=== PATIENT | male | born 1940 | race Caucasian/White ===

== ENCOUNTER 2017-03-12 11:01 | Inpatient (IN) | payer OTHER ==
[~2017-03-12] VITALS: Ht 182.9 cm; Wt 96.2 kg
[2017-03-12] MEDS ORDERED: SODIUM CHLORIDE 0.9% 1,000 ML IVB ONE (11:50)
[2017-03-12 12:39] LABS: Basophils # (auto) 0 uL; Basophils % (auto) 0.2 % (0.0-2.0); CONDITION Y; Eosinophils # (auto) 0.2 uL; Eosinophils % (auto) 1.8 % (0.0-7.0); Hematocrit 39.7 % (41.0-53.0); Hemoglobin 13.6 g/dL (13.5-17.5); Lymphocytes # (auto) 1.3 uL; Lymphocytes % (auto) 13.6 % (10.0-50.0); Mean Corpuscular Hemoglobin 31.9 pg (28.0-32.0); Mean Corpuscular Hgb Conc. 34.2 g/dL (32.0-36.0); Mean Corpuscular Volume 93.3 fL (80.0-100.0); Mean Platelet Volume 8.8 fL (7.4-10.4); Monocytes # (auto) 0.6 uL; Monocytes % (auto) 5.9 % (0.0-12.0); Neutrophils # (auto) 7.6 uL; Neutrophils % (auto) 78.5 % (37.0-80.0); Platelet Count (auto) 224 10^3/uL (140-450); Red Cell Distribution Width 14.1 % (11.6-16.0); White Blood Cell 9.7 10^3/uL (4.4-10.8)
[2017-03-12 13:10] LABS: INR 0.99 (0.9-1.15); Partial Thromboplastin Time 25.9 sec (22.64-33.71); Prothrombin Time 10.8 sec (9.37-12.3)
[2017-03-12 13:24] LABS: B-Type Natriuretic Peptide 75.74 pg/mL (0-100)
[2017-03-12 13:37] LABS: Albumin 3.5 g/dL (3.4-5.0); Anion Gap 9 (5-15); Aspartate Aminotransferase 36 U/L (15-37); Blood Urea Nitrogen 21 mg/dL (7-18); Calcium 7.8 mg/dL (8.5-10.1); Carbon Dioxide 30 mmol/L (21-32); Chloride 105 mmol/L (98-107); GFR African American 54 mL/min; GFR Non-African American 44 mL/min; Glucose 278 mg/dL (74-106); Magnesium 1.7 mg/dL (1.6-2.6); Potassium 4.1 mmol/L (3.5-5.1); Sodium 144 mmol/L (136-145)
[2017-03-12 13:42] LABS: Alkaline Phosphatase 72 U/L (45-117); Bilirubin, Total 1.1 mg/dL (0.2-1.0)
[2017-03-12 13:55] LABS: Lactic Acid w/Reflex 2.3 mmol/L (0.4-2.0)
[2017-03-12 14:31] LABS: REFLEX LACTIC ACID YES OR NO YES
[2017-03-12] MEDS ORDERED: ENOXAPARIN SOD 80 MG/0.8ML SYRINGE SC ONE (15:00)
[2017-03-12] MEDS ORDERED: SODIUM CHLORIDE 0.9% 1,000 ML IV ONE (15:00)
[2017-03-12] MEDS ORDERED: InsuLIN REG 1unit/0.01ml Soln (100units/ml) IV ONE (15:00)
[2017-03-12] MEDS ORDERED: ACETAMINOPHEN 500 MG TAB PO PRN (16:00)
[2017-03-12] MEDS ORDERED: FUROSEMIDE 20 MG/2 ML VIAL IV ONE (16:00)
[2017-03-12] MEDS ORDERED: HYDROcodone-ACET 5/325MG TAB PO PRN (16:00)
[2017-03-12] MEDS ORDERED: MORPHINE SULF INJ 2 MG/ML SYRINGE 1ML IV PRN ×2 (16:00)
[2017-03-12] MEDS ORDERED: LORazepam 0.5 MG TAB PO PRN (16:00)
[2017-03-12] MEDS ORDERED: DEXTROSE (50%) 50ML SYRG IV PRN (16:00)
[2017-03-12] MEDS ORDERED: TEMAZEPAM 15 MG CAP PO PRN (16:00)
[2017-03-12] MEDS ORDERED: ONDANSETRON HCL 4 MG/2 ML VIAL IV PRN (16:00)
[2017-03-12] MEDS ORDERED: NITROGLYCERIN 0.4 MG SL TAB SL PRN (16:00)
[2017-03-12] MEDS ORDERED: predniSONE 1 MG TAB PO ONE (16:30)
[2017-03-12] MEDS ORDERED: METOPROLOL TARTRATE 25 MG TAB PO ONE (16:30)
[2017-03-12] MEDS: ACCU-CHEK COMFORT CURVE STRIP VI SCH ×2 (16:45→22:23)
[2017-03-12] MEDS: InsuLIN REG 1unit/0.01ml Soln (100units/ml) SC SCH ×2 (16:46→22:24)
[2017-03-12] MEDS: SODIUM CHLORIDE 0.9% 1,000 ML IV SCH (18:27)
[2017-03-12 18:32] LABS: Urine Bilirubin Negative (Negative); Urine Blood Negative /uL (Negative); Urine Color Yellow (Yellow); Urine Glucose 4+ mg/dL (Normal); Urine Ketone Negative (Negative); Urine Mucus FEW (None Seen); Urine Nitrite Negative (Negative); Urine RBC <1 /hpf (0 - 3); Urine Squamous Epithelial Cell FEW /hpf (<5); Urine Urobilinogen Normal (Negative); Urine pH 5.5 (5.0-8.0)
[2017-03-12 22:00] VITALS: BP 112/67
[2017-03-12] MEDS ORDERED: ATORVASTATIN 20 MG TAB PO SCH (22:00)
[2017-03-12] MEDS: ENOXAPARIN SOD 80 MG/0.8ML SYRINGE SC SCH (22:23)
[2017-03-12] MEDS: METOPROLOL TARTRATE 25 MG TAB PO SCH (22:24)
[2017-03-13] VITALS (7 sets, daily range): BP systolic 105–130; BP diastolic 53–83
[2017-03-13 05:29] LABS: Basophils # (auto) 0 uL; Basophils % (auto) 0.4 % (0.0-2.0); CONDITION Y; Eosinophils # (auto) 0.2 uL; Eosinophils % (auto) 3.2 % (0.0-7.0); Hematocrit 32.5 % (41.0-53.0); Lymphocytes # (auto) 1.7 uL; Mean Corpuscular Hemoglobin 31.9 pg (28.0-32.0); Mean Corpuscular Hgb Conc. 33.8 g/dL (32.0-36.0); Mean Corpuscular Volume 94.4 fL (80.0-100.0); Mean Platelet Volume 8.5 fL (7.4-10.4); Monocytes # (auto) 0.5 uL; Monocytes % (auto) 6.4 % (0.0-12.0); Neutrophils # (auto) 4.8 uL; Platelet Count (auto) 168 10^3/uL (140-450); Red Cell Distribution Width 13.8 % (11.6-16.0); White Blood Cell 7.3 10^3/uL (4.4-10.8)
[2017-03-13 05:47] LABS: BUN/Creatinine Ratio 16.7; Calcium 7.1 mg/dL (8.5-10.1); Potassium 3.3 mmol/L (3.5-5.1)
[2017-03-13] MEDS: ACCU-CHEK COMFORT CURVE STRIP VI SCH ×4 (05:52→22:28)
[2017-03-13] MEDS: InsuLIN REG 1unit/0.01ml Soln (100units/ml) SC SCH ×4 (05:53→22:59)
[2017-03-13] MEDS ORDERED: METF-370 PO (06:32)
[2017-03-13] MEDS ORDERED: MET25T PO (06:32)
[2017-03-13] MEDS ORDERED: POTA10TA51 PO (06:32)
[2017-03-13] MEDS ORDERED: FURO20TA3 PO (06:32)
[2017-03-13] MEDS ORDERED: GLIP-115 PO (06:32)
[2017-03-13] MEDS: SODIUM CHLORIDE 0.9% 1,000 ML IV SCH ×2 (06:34→22:26)
[2017-03-13] MEDS ORDERED: predniSONE 1 MG TAB PO SCH (10:00)
[2017-03-13] MEDS: METOPROLOL TARTRATE 25 MG TAB PO SCH ×2 (10:59→22:28)
[2017-03-13] MEDS: predniSONE 1 MG TAB PO SCH ×2 (10:59→22:26)
[2017-03-13] MEDS: ENOXAPARIN SOD 80 MG/0.8ML SYRINGE SC SCH ×2 (11:00→22:39)
[2017-03-13] MEDS ORDERED: POTASSIUM CHL 20 Meq TABLET PO ONE (12:15)
[2017-03-13] MEDS ORDERED: APIXABAN 5 MG TAB PO SCH (13:00)
[2017-03-13] MEDS: glipiZIDE 5 MG TAB PO SCH ×2 (13:41→18:20)
[2017-03-13] MEDS ORDERED: APIXABAN 5 MG TAB PO ONE (14:00)
[2017-03-13] MEDS: APIXABAN 5 MG TAB PO SCH (22:27)
[2017-03-14 05:30] VITALS: BP 137/76
[2017-03-14 06:07] LABS: BUN/Creatinine Ratio 15.5; Calcium 7.7 mg/dL (8.5-10.1)
[2017-03-14] MEDS: ACCU-CHEK COMFORT CURVE STRIP VI SCH ×4 (06:12→22:25)
[2017-03-14] MEDS: glipiZIDE 5 MG TAB PO SCH ×2 (06:17→17:43)
[2017-03-14] MEDS: InsuLIN REG 1unit/0.01ml Soln (100units/ml) SC SCH ×4 (06:17→22:33)
[2017-03-14 06:39] LABS: Potassium 4.4 mmol/L (3.5-5.1)
[2017-03-14 09:00] VITALS: BP 141/80
[2017-03-14] MEDS: predniSONE 1 MG TAB PO SCH ×2 (09:11→22:24)
[2017-03-14] MEDS: APIXABAN 5 MG TAB PO SCH ×2 (09:12→22:24)
[2017-03-14] MEDS: METOPROLOL TARTRATE 25 MG TAB PO SCH ×2 (09:12→22:25)
[2017-03-14] MEDS: ENOXAPARIN SOD 80 MG/0.8ML SYRINGE SC SCH (09:12)
[2017-03-14] MEDS: SODIUM CHLORIDE 0.9% 1,000 ML IV SCH (09:13)
[2017-03-14 09:46] LABS: BUN/Creatinine Ratio 12.3; Calcium 7.4 mg/dL (8.5-10.1); Potassium 3.5 mmol/L (3.5-5.1)
[2017-03-14 12:45] VITALS: BP_SYST 110; BP_SYST 146; BP_DIAS 49; BP_DIAS 75
[2017-03-14 17:00] VITALS: BP_SYST 105; BP_SYST 126; BP_DIAS 55; BP_DIAS 69
[2017-03-14 21:35] VITALS: BP 136/62
[2017-03-15 05:01] VITALS: BP 124/63
[2017-03-15] MEDS: InsuLIN REG 1unit/0.01ml Soln (100units/ml) SC SCH ×2 (06:26→11:30)
[2017-03-15] MEDS: glipiZIDE 5 MG TAB PO SCH (06:26)
[2017-03-15] MEDS: ACCU-CHEK COMFORT CURVE STRIP VI SCH ×2 (06:26→11:30)
[2017-03-15 08:41] VITALS: BP 127/68
[2017-03-15] MEDS: APIXABAN 5 MG TAB PO SCH (10:44)
[2017-03-15] MEDS: METOPROLOL TARTRATE 25 MG TAB PO SCH (10:44)
[2017-03-15] MEDS: predniSONE 1 MG TAB PO SCH (10:45)
[2017-03-15 12:51] VITALS: BP 127/68
[2017-03-15 13:00] VITALS: BP 146/91
== END 2017-03-15 14:15 | disposition home or self-care (01) | DRG 682 ==
LOC: EDBD 11:01 → ER 11:01 → TELE 11:02 → TELE-WESTW 21:52
PROVIDERS: ADMIT Nurse Practitioner Family; ATTEND Internal Medicine
DX: N17.0 Acute kidney failure with tubular necrosis (principal); G93.41 Metabolic encephalopathy; I82.411 Acute embolism and thrombosis of right femoral vein; I13.0 Hypertensive heart and chronic kidney disease with heart failure and stage 1 through stage 4 chronic kidney disease, or unspecified chronic kidney disease; I50.32 Chronic diastolic (congestive) heart failure; M62.82 Rhabdomyolysis; E86.0 Dehydration; E78.5 Hyperlipidemia, unspecified; E11.22 Type 2 diabetes mellitus with diabetic chronic kidney disease; N18.3 Chronic kidney disease, stage 3 (moderate); E11.65 Type 2 diabetes mellitus with hyperglycemia; R79.1 Abnormal coagulation profile; Z79.01 Long term (current) use of anticoagulants
CPT/HCPCS: 36415; 70450; 71010; 78582; 80048; 80053; 80307; 80320; 81001; 82550; 82962; 83036; 83605; 83735; 83880; 84443; 84484; 85025; 85379; 85610; 85730; 87040; 87086; 93005; 93306; 93970; 96360; 96361; 96372; 97163; 99291; J1815

== ENCOUNTER 2017-04-11 08:31 | Emergency (ER) | payer OTHER ==
[~2017-04-11] VITALS: Ht 193 cm; Wt 81.6 kg
[~2017-04-11 08:31] MED LIST: FURO20TA3 PO; GLIP-115 PO; MET25T PO; METF-370 PO; POTA10TA51 PO
[2017-04-11] MEDS ORDERED: SODIUM CHLORIDE 0.9% 1,000 ML IV ONE (09:02)
[2017-04-11 09:45] LABS: Basophils # (auto) 0.1 uL; Eosinophils # (auto) 0.2 uL; Hematocrit 37.9 % (41.0-53.0); Hemoglobin 12.8 g/dL (13.5-17.5); Lymphocytes % (auto) 24.6 % (10.0-50.0); Mean Corpuscular Hemoglobin 31.6 pg (28.0-32.0); Mean Corpuscular Hgb Conc. 33.8 g/dL (32.0-36.0); Mean Corpuscular Volume 93.7 fL (80.0-100.0); Mean Platelet Volume 8.4 fL (6.9-10.8); Monocytes # (auto) 0.8 uL; Monocytes % (auto) 9.6 % (0.0-12.0); Neutrophils # (auto) 5.1 uL; Neutrophils % (auto) 62.8 % (37.0-80.0); Platelet Count (auto) 188 10^3/uL (140-450); Red Cell Distribution Width 13.9 % (11.8-14.3); White Blood Cell 8.1 10^3/uL (4.4-10.8)
[2017-04-11 10:01] LABS: INR 1.03 (0.9-1.15); Partial Thromboplastin Time 29.3 sec (22.64-33.71); Prothrombin Time 11.2 sec (9.37-12.3)
[2017-04-11 10:09] LABS: Albumin 3.8 g/dL (3.4-5.0); Alkaline Phosphatase 72 U/L (45-117); Anion Gap 8 (5-15); Aspartate Aminotransferase 12 U/L (15-37); BUN/Creatinine Ratio 12.1; Bilirubin, Total 0.5 mg/dL (0.2-1.0); Blood Urea Nitrogen 18 mg/dL (7-18); Calcium 7.4 mg/dL (8.5-10.1); Carbon Dioxide 27 mmol/L (21-32); Chloride 102 mmol/L (98-107); GFR African American 59 mL/min; GFR Non-African American 49 mL/min; Glucose 139 mg/dL (74-106); Magnesium 1.4 mg/dL (1.6-2.6); Potassium 3.8 mmol/L (3.5-5.1); Sodium 137 mmol/L (136-145); Total Protein 7.2 g/dL (6.4-8.2)
[2017-04-11 10:12] LABS: Urine RBC None Seen /hpf (0 - 3)
[2017-04-11 10:28] LABS: Urine Bilirubin Negative (Negative); Urine Blood Negative /uL (Negative); Urine Color Yellow (Yellow); Urine Glucose Normal (Normal); Urine Ketone Negative (Negative); Urine Nitrite Negative (Negative); Urine Squamous Epithelial Cell FEW /hpf (<5); Urine Urobilinogen Normal (Negative); Urine pH 5.5 (5.0-8.0)
[2017-04-11] MEDS: MAGNESIUM SULFATE 1GM/100ML 100 ML IV SCH ×2 (12:40→13:23)
[2017-04-11 14:56] VITALS: BP 116/68
== END 2017-04-11 15:47 | disposition short-term general hospital (02) ==
LOC: EDBD 08:31 → ER 08:31
DX: G45.9 Transient cerebral ischemic attack, unspecified (principal); E11.21 Type 2 diabetes mellitus with diabetic nephropathy; E83.42 Hypomagnesemia; I50.9 Heart failure, unspecified; I11.0 Hypertensive heart disease with heart failure; E78.5 Hyperlipidemia, unspecified
CPT/HCPCS: 36415; 70450; 71020; 80053; 81001; 83735; 84443; 84484; 85025; 85610; 85730; 93005; 94761; 96361; 96365; 96366; 99285; J3475; J7030

== ENCOUNTER 2018-06-15 18:08 | Observation (INO) | payer OTHER ==
[~2018-06-15] VITALS: Ht 177.8 cm; Wt 90.7 kg
[2018-06-15] MEDS ORDERED: VANCOMYCIN 1GM/250ML 250 ML IV ONE (20:15)
[2018-06-15] MEDS ORDERED: SODIUM CHLORIDE 0.9% 1,000 ML IV ONE (20:15)
[2018-06-15] MEDS ORDERED: cefTRIAXone 1GM/50ML D5W 50 ML IV ONE (20:15)
[2018-06-15 20:16] LABS: Basophils # (auto) 0.1 uL; Basophils % (auto) 0.6 % (0.0-2.0); Eosinophils # (auto) 0.2 uL; Lymphocytes # (auto) 1.6 uL; Lymphocytes % (auto) 17.3 % (10.0-50.0); Mean Corpuscular Hemoglobin 31.8 pg (28.0-32.0); Mean Corpuscular Volume 93.2 fL (80.0-100.0); Monocytes # (auto) 0.9 uL; Monocytes % (auto) 10.1 % (0.0-12.0); Neutrophils # (auto) 6.4 uL; White Blood Cell 9.1 10^3/uL (4.4-10.8)
[2018-06-15 20:17] LABS: Mean Corpuscular Hgb Conc. 34.1 g/dL (32.0-36.0); Platelet Count (auto) 224 10^3/uL (140-450); Red Cell Distribution Width 14.3 % (11.8-14.3)
[2018-06-15 20:34] LABS: Alanine Aminotransferase 20 U/L (16-61); Albumin 3.8 g/dL (3.4-5.0); Anion Gap 5 (5-15); Aspartate Aminotransferase 10 U/L (15-37); Blood Urea Nitrogen 24 mg/dL (7-18); Calcium 8.1 mg/dL (8.5-10.1); Carbon Dioxide 28 mmol/L (21-32); Chloride 107 mmol/L (98-107); Glucose 130 mg/dL (74-106); Potassium 3.7 mmol/L (3.5-5.1); Sodium 140 mmol/L (136-145)
[2018-06-15 20:36] LABS: Lactic Acid w/Reflex 2.2 mmol/L (0.4-2.0)
[2018-06-15 20:38] LABS: Alkaline Phosphatase 91 U/L (45-117); BUN/Creatinine Ratio 17.4; Bilirubin, Total 0.5 mg/dL (0.2-1.0); GFR African American 64 mL/min; GFR Non-African American 53 mL/min; Total Protein 7.3 g/dL (6.4-8.2)
[2018-06-15] MEDS ORDERED: cloNIDine HCL 0.1 MG TAB PO ONE (23:30)
[2018-06-16] MEDS ORDERED: SODIUM CHLORIDE 0.9% 1,000 ML IVB ONE (08:51)
[2018-06-16 09:33] LABS: Alcohol, Urine < 3.0 mg/dL (0-5); Amphetamine Screen, Urine NEGATIVE (NEGATIVE); Barbiturate Scree,Urine NEGATIVE (NEGATIVE); Benzodiazephine Screen, Urine NEGATIVE (NEGATIVE); Cannabinoid Screen, Urine NEGATIVE (NEGATIVE); Cocaine Screen, Urine NEGATIVE (NEGATIVE); Opiate Scree,Urine NEGATIVE (NEGATIVE); Phencyclidine Screen, Urine NEGATIVE (NEGATIVE)
[2018-06-16 09:42] LABS: Urine Bacteria NONE SEEN /hpf (None Seen); Urine Blood Negative /uL (Negative); Urine Specific Gravity 1.021 (1.001-1.035); Urine WBC <1 /hpf (0 - 3)
[2018-06-16 14:28] VITALS: BP 123/64
[2018-06-16 14:29] LABS: INR 0.93 (0.9-1.15); Partial Thromboplastin Time 27.5 sec (23.78-33.04)
== END 2018-06-16 14:39 | disposition short-term general hospital (02) | DRG 872 ==
LOC: EDBD 18:08 → ER 18:20 → OVERFLOW 21:39 → ER 06-16 14:39
PROVIDERS: ADMIT Emergency Medicine; ATTEND Emergency Medicine
DX: A40.9 Streptococcal sepsis, unspecified (principal); L03.115 Cellulitis of right lower limb; I11.0 Hypertensive heart disease with heart failure; I50.9 Heart failure, unspecified; E11.51 Type 2 diabetes mellitus with diabetic peripheral angiopathy without gangrene; E11.621 Type 2 diabetes mellitus with foot ulcer; N28.9 Disorder of kidney and ureter, unspecified; E78.5 Hyperlipidemia, unspecified
CPT/HCPCS: 36415; 70450; 71045; 73610; 80053; 80307; 81001; 82962; 83605; 83735; 84443; 84484; 85025; 85610; 85730; 87040; 87077; 87186; 87205; 93005; 96365; 96368; 99291; G0378; J0696; J3370; J7030

== ENCOUNTER 2018-12-08 00:16 | Inpatient (IN) | payer OTHER ==
[~2018-12-08] VITALS: Ht 182.9 cm; Wt 94.1 kg
[~2018-12-08 00:16] MED LIST changes: -GLIP-115 PO; +GLIP5TAB12 PO
[2018-12-08] MEDS ORDERED: MEPERIDINE HCL (50 MG/ML) 1 ML VIAL IV ONE (01:30)
[2018-12-08] MEDS ORDERED: DILTIAZEM HCL 25 MG/5 ML VIAL IV ONE (01:30)
[2018-12-08] MEDS ORDERED: LEVOFLOXACIN 750MG 150 ML IV ONE (02:00)
[2018-12-08] MEDS ORDERED: ACETAMINOPHEN 650 MG RECT SUPP PR ONE (02:00)
[2018-12-08 02:09] LABS: Basophils # (auto) 0.1 uL; Basophils % (auto) 0.5 % (0.0-2.0); Eosinophils # (auto) 0.1 uL; Eosinophils % (auto) 0.8 % (0.0-7.0); Hematocrit 42.6 % (41.0-53.0); Lymphocytes # (auto) 0.9 uL; Lymphocytes % (auto) 7.7 % (10.0-50.0); Mean Corpuscular Hemoglobin 30.6 pg (28.0-32.0); Mean Corpuscular Hgb Conc. 32.8 g/dL (32.0-36.0); Mean Corpuscular Volume 93.2 fL (80.0-100.0); Monocytes # (auto) 1.1 uL; Monocytes % (auto) 9.1 % (0.0-12.0); Neutrophils % (auto) 81.9 % (37.0-80.0); Nucleated Red Blood Cells % 0.1 %; Platelet Count (auto) 196 10^3/uL (140-450); Red Blood Cells 4.57 10^6/uL (4.5-5.90); Red Cell Distribution Width 14.3 % (11.8-14.3); White Blood Cell 12.3 10^3/uL (4.4-10.8)
[2018-12-08 02:31] LABS: Lactic Acid w/Reflex 3.6 mmol/L (0.4-2.0)
[2018-12-08 02:35] LABS: Acetaminophen < 2.0 ug/mL (10-30); Salicylate < 1.7 mg/dL (2.8-20.0)
[2018-12-08 02:46] LABS: Urine Bacteria NONE SEEN /hpf (None Seen); Urine Blood 1+ /uL (Negative); Urine WBC 1 /hpf (0 - 3)
[2018-12-08 03:02] LABS: Albumin 3.4 g/dL (3.4-5.0); Alkaline Phosphatase 80 U/L (45-117); Anion Gap 13 (5-15); Aspartate Aminotransferase 17 U/L (15-37); BUN/Creatinine Ratio 8.4; Bilirubin, Total 0.4 mg/dL (0.2-1.0); Blood Urea Nitrogen 13 mg/dL (7-18); Carbon Dioxide 18 mmol/L (21-32); Chloride 112 mmol/L (98-107); GFR African American 56 mL/min; GFR Non-African American 47 mL/min; Glucose 227 mg/dL (74-106); Potassium 4.3 mmol/L (3.5-5.1); Sodium 143 mmol/L (136-145)
[2018-12-08 03:03] LABS: Alanine Aminotransferase 24 U/L (16-61); Blood Alcohol < 3.0 mg/dL (0-5); Total Protein 6.9 g/dL (6.4-8.2)
[2018-12-08 03:07] LABS: Alcohol, Urine < 3.0 mg/dL (0-5); Amphetamine Screen, Urine NEGATIVE (NEGATIVE); Barbiturate Scree,Urine NEGATIVE (NEGATIVE); Benzodiazephine Screen, Urine NEGATIVE (NEGATIVE); Cannabinoid Screen, Urine NEGATIVE (NEGATIVE); Cocaine Screen, Urine NEGATIVE (NEGATIVE); Opiate Scree,Urine NEGATIVE (NEGATIVE); Phencyclidine Screen, Urine NEGATIVE (NEGATIVE)
[2018-12-08] MEDS ORDERED: DIGOXIN (250MCG/ML) 2 ML AMPULE IV ONE (03:30)
[2018-12-08] MEDS ORDERED: DILTIAZEM 125mg/125ml BAG KIT 125 ML IV ONE (04:00)
[2018-12-08] MEDS ORDERED: AMIODARONE HCL 150 MG in D5W 5% 100 ML IV ONE ×2 (04:15→04:30)
[2018-12-08] MEDS ORDERED: KETOROLAC TROMETH 30 MG/ML 1ML VIAL IV ONE (04:15)
[2018-12-08] MEDS ORDERED: VANCOMYCIN PER PHARMACY 0 MG IV SCH (04:15)
[2018-12-08] MEDS ORDERED: AMIODARONE HCL 900 MG in DEXTROSE 500 ML IV SCH ×3 (04:24→10:24)
[2018-12-08] MEDS ORDERED: LABETALOL HCL 5 MG/ML ML 20ML VIAL IV ONE ×2 (04:30→05:00)
[2018-12-08] MEDS ORDERED: AMIODARONE HCL 900 MG IV ONE (04:35)
[2018-12-08] MEDS ORDERED: AMIODARONE HCL (50 MG/ ML) 3 ML VIAL IV ONE (04:44)
[2018-12-08] MEDS: SODIUM CHLORIDE 0.9% 1,000 ML IV SCH ×2 (04:45→14:30)
[2018-12-08] MEDS ORDERED: SODIUM CHLORIDE 0.9% 1,000 ML IV ONE (04:45)
[2018-12-08] MEDS ORDERED: DEXTROSE (50%) 50ML SYRG IV PRN (04:45)
[2018-12-08] MEDS ORDERED: hydrALAZINE HCL 20 MG/ML VL IV ONE (05:45)
[2018-12-08] MEDS: ACCU-CHEK COMFORT CURVE STRIP VI SCH ×3 (06:10→18:00)
[2018-12-08] MEDS: InsuLIN REG 1unit/0.01ml Soln (100units/ml) SC SCH ×3 (06:12→18:30)
[2018-12-08 06:40] VITALS: BP 183/110
--- NOTE | 2018-12-08 06:40 | NUR ---
Admit to [facility] admitted to [facility] via gurney on ekg monitor,and portable 02. Patient is ALOC and unable to follow commands. Patient transfered to bed, connected to unit monitoring and oxygen, and weighed by bedscale. Patient oriented to VERNELL MCDONOUGH, primary RN, unit, room, bed, and unit policies regarding patient care and visiting hours. Bed in lowest position, side rails up x2, call light within reach. Will endorse care to day shift RN.
--- NOTE | 2018-12-08 06:45 | NUR ---
WOUND CARE PICTURES OF THE RIGHT ELBOW SKIN TEAR TAKEN. 4X4 OPTIFOAM PLACED. WOUND CARE CONSULT PLACED.
[2018-12-08] MEDS ORDERED: VANCOMYCIN 1,250 MG in D5W 5% 250 ML IV ONE (07:00)
[2018-12-08 08:00] VITALS: BP 167/83
--- NOTE | 2018-12-08 08:00 | NUR ---
Opening Shift Note Assumed care of patient. Patient eyes open and responds to voice but will not speak. Patient has a blank stare or gaze. Unable to assess patient orientation. IV 22G left wrist running fluids at 100ml/hr and 20G forearm running Amiodarone at 33.33ml/hr. Both IV's patent, clean, dry, and intact. Patient on 2L NC. Patient has multiple bruises all over. Skin tear on right elbow and left price covered with optifoam. No S/S of distress/SOB or pain. Bed locked and in the lowest position, side rails up x2, call light with in reach. Instructed on POC and to call for assist PRN, will continue to monitor.
[2018-12-08] MEDS ORDERED: cefTRIAXone 1GM/50ML D5W 50 ML IV SCH (09:00)
[2018-12-08] MEDS ORDERED: ENOXAPARIN SOD 40 MG/0.4 ML SYRINGE SC SCH (10:00)
--- NOTE | 2018-12-08 10:00 | NUR ---
Medication dosages, usages, and side effects explained to patient. Will continue to monitor.
[2018-12-08] MEDS: AMIODARONE HCL 900 MG in DEXTROSE 500 ML IV SCH (10:30)
[2018-12-08] MEDS: cefTRIAXone 1GM/50ML D5W 50 ML IV SCH (10:31)
[2018-12-08] MEDS: ESOMEPRAZOLE 40 MG/5ml VIAL INJ IV SCH (10:32)
--- NOTE | 2018-12-08 10:40 | NUR ---
WOUND CARE NOTE: IN TO SEE PATIENT AT THIS TIME PER WOUND CARE CONSULT REQUEST. PATIENT RECENTLY ADMITTED TO [facility] WITH DIAGNOSIS OF ALOC. CURRENT MABEL SCORE IS 12. PATIENT NOTED TO HAVE SKIN INTEGRITY ISSUES UPON ADMIT, WOUND PHOTO TAKEN FOR REFERENCE BY BEDSIDE NURSE, WOUND CONSULT ORDERED. PER BEDSIDE NURSE, PATIENT MAY HAVE BEEN FOUND DOWN ON GROUND AT HOME. PATIENT IS ALOC, UNABLE TO OBTAIN HISTORY AT THIS TIME. PATIENT IS NOTED TO HAVE MULTIPLE SKIN INTEGRITY ISSUES NOTED, INCLUDING PURPLE ECCHYMOSIS TO RIGHT SHOULDER, BILATERAL KNEES, SKIN TEARS TO THE RIGHT ELBOW, LEFT JONES, DARK RED BLANCHABLE REDNESS TO SACRUM, WITH PURPLE TRAUMA ECCHYMOSIS TO UPPER SACRUM/LUMBAR BACK. APPLIED THERAHONEY, OPTIFOAM GENTLE DRESSINGS TO SKIN TEARS. ORDERED SPECIALTY AIR MATRESS D/T PATIENT'S LOW MABEL, AND ECCHYMOSIS. RIGHT SHOULDER AND BILATERAL KNEE ECCHYMOSIS MAY BE DTI'S D/T PATIENT BEING FOUND DOWN ON GROUND FOR UNKNOWN PERIOD OF TIME. RECOMMEND: FREQUENT TURN SCHEDULE Q 2 HOURS,PRN CONDITION PERMITS, WITH PRESSURE REDISTRIBUTION USING PILLOWS/WEDGES, BID/PRN APPLICATION WITH MOISTURE BARRIER CREAM, OPTIFOAM GENTLE SACRAL DRESSING, SPECIALTY AIR MATTRESS, LORENZO FOAM BOOTS TO BILATERAL FEET/HEELS, SKIN/WOUND CARE PLAN, DIETARY CONSULT, CONTINUED MONITORING BY WOUND CARE TEAM. Addendum: 12/08/18 at 1817 by Juana Chandler RN Amended: Links added.
--- NOTE | 2018-12-08 10:42 | NUR ---
Wound care nurse Elizabeth at bedside. Took pictures of bruises and skin tears. Skin Tear right elbow and left price dressed with honey and optifoam.
--- NOTE | 2018-12-08 11:23 | NUR ---
Placed jass boots on patient. Patient still not responding. Will continue to monitor.
[2018-12-08 12:00] VITALS: BP 129/81
--- NOTE | 2018-12-08 12:15 | NUR ---
Dr. Erickson at bedside.
[2018-12-08] MEDS: ACETAMINOPHEN 650 MG RECT SUPP PR PRN (12:40)
--- NOTE | 2018-12-08 13:30 | NUR ---
Patient still only responding to shaking. Patient will not talk. Patient opens eyes and stares but does not respond.
--- NOTE | 2018-12-08 14:10 | NUR ---
PRELIMINARY RESULTS OF DVT STUDY:POS FOR THROMBUS IN BOTH LEGS. DR. ALBERTS PAGEFe
--- NOTE | 2018-12-08 14:19 | NUR ---
Spoke with Radiologist Doctor. Patient positive for DVT bilateral.
--- NOTE | 2018-12-08 14:20 | NUR ---
Spoke with Dr. Silva, patient positive for DVT bilateral. Dr. Erickson will speak with pharmacist about recommendations for blood thinner considering patient has hematuria.
--- NOTE | 2018-12-08 15:00 | NUR ---
Checked on patient and asked how he was doing and patient responded with "Ok." Asked patient name and . Patient knew name but could not remember . Patient does not remember how he got here or what happened to him, he states that he does remember falling but that is about it. Patient does not know time or date. A&Ox1. Will continue to monitor.
--- NOTE | 2018-12-08 15:34 | NUR ---
SWALLOW EVALUATED. PATIENT ABLE TO FOLLOW SINGLE STEP COMMANDS ALTHOUGH PATIENT DID NOT SPEAK. PATIENT HAS A FEW OWN TEETH UPPER AND LOWER. PATIENT IN NEED OF CONTINUED ORAL CARE. PATIENT ABLE TO TOLERATE PUREE DIET TEXTURE WITH NECTAR THICKENED LIQUIDS WITH NO OVERT SIGNS OR SYMPTOMS OF ASPIRATION. PATIENT COUGHED FOLLOWING TRIAL OF THIN LIQUIDS. PATIENT WILL NEED ASSISTANCE WITH PO INTAKE. NURSING NOTIFIED.
[2018-12-08 15:50] VITALS: BP 137/75
--- NOTE | 2018-12-08 16:15 | NUR ---
Patient taken to CT by Carmen SUTHERLAND on portable monitor.
--- NOTE | 2018-12-08 16:40 | NUR ---
Patient back from CT. Carmen stated that patient was able to follow commands and respond appropriately to direction. Patient on the monitor. Patient resting now. Will continue to monitor.
[2018-12-08] MEDS ORDERED: ENOXAPARIN SOD 80 MG/0.8ML SYRINGE SC ONE (17:45)
--- NOTE | 2018-12-08 18:50 | NUR ---
End of shift note: Patient eyes open sitting up in bed watching TV. Patient still A&Ox1. IV 22G left wrist running fluids at 100ml/hr and 20G forearm running Amiodarone at 16.66ml/hr. Both IV's patent, clean, dry, and intact. Patient on 2L NC. Patient has multiple bruises all over. Skin tear on right elbow and left price covered with optifoam. No S/S of distress/SOB or pain. Janene boots on. Patient on the monitor and on room air, saturation at 97%. Bed locked and in the lowest position, side rails up x2, call light with in reach. Report to be given to shift supervisor film processing RN. Will continue to monitor.
--- NOTE | 2018-12-08 19:20 | NUR ---
OPENING NOTE RECEIVED REPORT FROM DAY SHIFT RN. ASSUMED CARE OF PATIENT. PATIENT IN BED, UNABLE TO RESPOND AND HAS A FLAT AFFECT. ALERT AND ORIENTED TO SELF. NO SIGNS OR SYMPTOMS OF SOB, PAIN OR DISTRESS. CURRENTLY ON ROOM AIR, 02 SAT - 97%. LEFT FOREARM 22G IV NORI/DRY/INTACT, LEFT WRIST 22G IV CLEAN/DRY/INTACT. BED IN LOWEST POSITION, SIDE RAILS UP X3, CALL LIGHT WITHIN REACH. WILL CONTINUE TO MONITOR.
[2018-12-08 19:49] VITALS: BP 145/84
--- NOTE | 2018-12-08 21:20 | NUR ---
AIR MATTRESS DELIVERED. TRANSFERRED PATIENT TO AIR MATTRESS, PATIENT TOLERATED WELL. WILL CONTINUE TO MONITOR.
[2018-12-09] VITALS: BP 102/52
[2018-12-09] MEDS: SODIUM CHLORIDE 0.9% 1,000 ML IV SCH ×2 (00:17→10:15)
[2018-12-09] MEDS: ACCU-CHEK COMFORT CURVE STRIP VI SCH ×4 (00:17→17:35)
--- NOTE | 2018-12-09 01:10 | NUR ---
ROUNDS PATIENT SLEEPING IN BED WITH NO SIGNS OR SYMPTOMS OF SOB, PAIN OR DISTRESS. CURRENTLY ON ROOM AIR, 02 SAT - 96%. BED IN LOWEST POSITION, SIDE RAILS UP X2, CALL LIGHT WITHIN REACH. WILL CONTINUE TO MONITOR.
[2018-12-09 04:00] VITALS: BP 118/77
--- NOTE | 2018-12-09 04:05 | NUR ---
MORNING CARE MORNING CARE PERFORMED WITH CHG WIPES AND WASH CLOTHS TO THE FACE. PARTIAL LINEN CHANGE AND GOWN CHANGED. REPOSITIONED PATIENT FOR COMFORT. PATIENT TOLERATED WELL. CURRENTLY ON ROOM AIR, 02 SAT - 97%. NO SIGNS OR SYMPTOMS OF SOB, PAIN OR DISTRESS. WILL CONTINUE TO MONITOR.
[2018-12-09] MEDS: AMIODARONE HCL 900 MG in DEXTROSE 500 ML IV SCH (04:44)
[2018-12-09 05:26] LABS: Basophils # (auto) 0 uL; Basophils % (auto) 0.4 % (0.0-2.0); Eosinophils # (auto) 0.2 uL; Eosinophils % (auto) 2.5 % (0.0-7.0); Hematocrit 36.9 % (41.0-53.0); Hemoglobin 12.6 g/dL (13.5-17.5); Lymphocytes # (auto) 1.2 uL; Lymphocytes % (auto) 12.9 % (10.0-50.0); Mean Corpuscular Hemoglobin 31.4 pg (28.0-32.0); Mean Corpuscular Hgb Conc. 34.1 g/dL (32.0-36.0); Monocytes # (auto) 0.7 uL; Monocytes % (auto) 7.6 % (0.0-12.0); Neutrophils % (auto) 76.6 % (37.0-80.0); Platelet Count (auto) 156 10^3/uL (140-450); Red Blood Cells 4.01 10^6/uL (4.5-5.90); Red Cell Distribution Width 14.2 % (11.8-14.3); White Blood Cell 9.1 10^3/uL (4.4-10.8)
[2018-12-09 05:50] LABS: BUN/Creatinine Ratio 12.4; Calcium 7.9 mg/dL (8.5-10.1); Potassium 4.1 mmol/L (3.5-5.1)
[2018-12-09] MEDS: InsuLIN REG 1unit/0.01ml Soln (100units/ml) SC SCH ×4 (06:00→17:36)
[2018-12-09] MEDS: VANCOMYCIN 1,250 MG in D5W 5% 250 ML IV SCH (06:47)
--- NOTE | 2018-12-09 07:08 | NUR ---
END OF SHIFT PATIENT SLEEPING IN BED WITH NO SIGNS OR SYMPTOMS OF SOB, PAIN OR DISTRESS. CURRENTLY ON ROOM AIR, 02 SAT - 97%. LEFT FOREARM IV - CLEAN/DRY/INTACT, LEFT WRIST IV - CLEAN/DRY/INTACT. BED IN LOWEST POSITION, SIDE RAILS UP X2, CALL LIGHT WITHIN REACH. WILL ENDORSE CARE TO DAY SHIFT RN.
[2018-12-09] MEDS ORDERED: ENOXAPARIN SOD 30 MG/0.3 ML SYRINGE SC SCH (10:00)
[2018-12-09] MEDS: ESOMEPRAZOLE 40 MG/5ml VIAL INJ IV SCH (11:08)
[2018-12-09] MEDS: ENOXAPARIN SOD 80 MG/0.8ML SYRINGE SC SCH ×2 (11:09→22:06)
[2018-12-09] MEDS: cefTRIAXone 1GM/50ML D5W 50 ML IV SCH (11:09)
--- NOTE | 2018-12-09 11:33 | NUR ---
DETAILED REPORT GIVEN TO OUTSIDE SENIOR FINANCIAL ANALYST, ALFRED, FROM [facility].
[2018-12-09 12:00] VITALS: BP 159/73
[2018-12-09] MEDS ORDERED: cloNIDine HCL 0.1 MG TAB PO PRN (12:30)
[2018-12-09] MEDS ORDERED: SOTALOL HCL 80 MG TAB PO ONE (12:30)
--- NOTE | 2018-12-09 12:50 | NUR ---
PT SEEN BY JOEY ALBERTS AND KIRSTIE. PT CURRENTLY IN SR. PER BOTH MDS, CONTINUE AMIODARONE DRIP.
--- NOTE | 2018-12-09 12:55 | NUR ---
NAUSEA WENT INTO ROOM TO ADMINISTER ORDERED DOSE OF BETAPACE. PT C/O NAUSEA, THINKS WOULD VOMIT IF TAKES MED. PAGED AND SPOKE WITH DR ALBERTS AND ORDER RECEIVED FOR ZOFRAN PRN. WILL ADMINISTER DOSE AND THEN GIVE BETAPACE WHEN NAUSEA RESOLVED.
[2018-12-09] MEDS ORDERED: ONDANSETRON HCL 4 MG/2 ML VIAL ONE (13:05)
[2018-12-09] MEDS ORDERED: ONDANSETRON HCL 4 MG/2 ML VIAL IV PRN (13:15)
[2018-12-09 16:00] VITALS: BP_SYST 126; BP_SYST 130; BP_DIAS 53; BP_DIAS 67
--- NOTE | 2018-12-09 19:25 | NUR ---
OPENING SHIFT RECEIVED REPORT FROM DAY SHIFT RN. ASSUMED CARE OF PATIENT. PATIENT IS ALERT AND ORIENT X3 AND CURRENTLY WATCHING TV WITH NO SIGNS OR SYMPTOMS OF SOB, PAIN OR DISTRESS. CURRENTLY ON ROOM AIR, 02 SAT - 96%. UPDATED PATIENT ON PLAN OF CARE. LEFT FOREARM 20G - CLEAN/DRY/INTACT, LEFT WRIST 22G - CLEAN/DRY/INTACT. BED IN LOWEST POSITION, SIDE RAILS UP X2, CALL LIGHT WITHIN REACH. WILL CONTINUE TO MONITOR.
--- NOTE | 2018-12-09 20:02 | NUR ---
DR. PORTILLO AT BEDSIDE PERFORMING ASSESSMENT.
[2018-12-09] MEDS: SOTALOL HCL 80 MG TAB PO SCH (22:11)
--- NOTE | 2018-12-09 23:30 | NUR ---
ROUNDS PATIENT IN BED SLEEPING WITH NO SIGNS OR SYMPTOMS OF SOB, PAIN, OR DISTRESS. CURRENTLY ON 2L 02 NASAL CANULA, 02 SAT - 99%. BED IN LOWEST POSITION, SIDE RAILS UP X2, CALL LIGHT WITHIN REACH. WILL CONTINUE TO MONITOR.
[2018-12-10] VITALS: BP 132/74
[2018-12-10] MEDS: ACCU-CHEK COMFORT CURVE STRIP VI SCH ×5 (00:04→23:30)
--- NOTE | 2018-12-10 04:34 | NUR ---
MORNING CARE PATIENT REFUSED MORNING CARE, LINEN CHANGE AND GOWN CHANGE AT THIS TIME. STATES, " I DONT WANT TO GET CHANGED RIGHT NOW." REPOSITIONED FOR COMFORT. RIGHT ELBOW SKIN TEAR - CLEANSED AND OPTIFOAM DRESSING CHANGED, LEFT JONES SKIN TEAR - CLEANSED AND OPTIFOAM CHANGED. BED IN LOWEST POSITION, SIDE RAIL UP X2, CALL LIGHT WITHIN REACH. WILL CONTINUE TO MONITOR.
--- NOTE | 2018-12-10 05:20 | NUR ---
ROUNDS PATIENT IN BED SLEEPING WITH NO SIGNS OR SYMPTOMS OF SOB, PAIN OR DISTRESS. REPOSITIONED FOR COMFORT. BED IN LOWEST POSITION, SIDE RAILS UP X2, CALL LIGHT WITHIN REACH. WILL CONTINUE TO MONITOR.
[2018-12-10] MEDS: InsuLIN REG 1unit/0.01ml Soln (100units/ml) SC SCH ×5 (06:00→23:30)
[2018-12-10 06:19] LABS: Basophils # (auto) 0 uL; Basophils % (auto) 0.5 % (0.0-2.0); Eosinophils # (auto) 0.5 uL; Eosinophils % (auto) 6.6 % (0.0-7.0); Hematocrit 34.4 % (41.0-53.0); Hemoglobin 11.6 g/dL (13.5-17.5); Lymphocytes # (auto) 1.1 uL; Lymphocytes % (auto) 15.6 % (10.0-50.0); Mean Corpuscular Hemoglobin 31.1 pg (28.0-32.0); Mean Corpuscular Hgb Conc. 33.7 g/dL (32.0-36.0); Mean Corpuscular Volume 92.3 fL (80.0-100.0); Monocytes # (auto) 0.8 uL; Neutrophils # (auto) 4.9 uL; Neutrophils % (auto) 66.3 % (37.0-80.0); Nucleated Red Blood Cells % 0.1 %; Platelet Count (auto) 150 10^3/uL (140-450); Red Blood Cells 3.72 10^6/uL (4.5-5.90); Red Cell Distribution Width 14.5 % (11.8-14.3); White Blood Cell 7.4 10^3/uL (4.4-10.8)
[2018-12-10 06:26] LABS: Potassium 4.3 mmol/L (3.5-5.1)
[2018-12-10 06:33] LABS: Albumin 2.7 g/dL (3.4-5.0); BUN/Creatinine Ratio 9.8; Bilirubin, Total 0.7 mg/dL (0.2-1.0); Calcium 7.9 mg/dL (8.5-10.1); Total Protein 5.8 g/dL (6.4-8.2)
--- NOTE | 2018-12-10 06:35 | NUR ---
END OF SHIFT PATIENT IN BED SLEEPING WITH NO SIGNS OR SYMPTOMS OF SOB, PAIN OR DISTRESS. CURRENTLY ON 2L 02 NASAL CANULA, 02 SAT- 97%. UPDATED PATIENT ON PLAN OF CARE. BOTH LEFT IV SITES - CLEAN/DRY/INTACT. BED IN LOWEST POSITION, SIDE RAILS X2, CALL LIGHT WITHIN REACH. WILL ENDORSE CARE TO DAY WILFRED SUTHERLAND.
--- NOTE | 2018-12-10 07:30 | NUR ---
Opening Shift Note Assumed care of patient, awake and alert, oriented x3. Lying on the bed, watching TV, No S/S of distress/SOB or pain. Instructed on POC and to call for assist PRN, will continue to monitor for changes Q1hr and PRN. Patient has tyson's catheter, urine drain to bag with hematuria. Will continue to monitor and care.
[2018-12-10] MEDS: VANCOMYCIN 1,250 MG in D5W 5% 250 ML IV SCH (07:35)
[2018-12-10 08:00] VITALS: BP 159/75
--- NOTE | 2018-12-10 08:15 | NUR ---
Dr. Murray at bedside, seen and examined patient at this time, plan of care discussed with patient. Try to get his family's information.
--- NOTE | 2018-12-10 09:10 | NUR ---
Provided Breakfast tray, norma sitting up on the bed for breakfast, patient able to feed himself but take time for that, will continue to monitor for aspiration.
[2018-12-10] MEDS: ESOMEPRAZOLE 40 MG/5ml VIAL INJ IV SCH (09:23)
[2018-12-10] MEDS: ENOXAPARIN SOD 80 MG/0.8ML SYRINGE SC SCH ×2 (09:23→21:33)
[2018-12-10] MEDS: cefTRIAXone 1GM/50ML D5W 50 ML IV SCH (09:23)
[2018-12-10] MEDS: SOTALOL HCL 80 MG TAB PO SCH ×2 (09:26→21:32)
--- NOTE | 2018-12-10 10:52 | NUR ---
PT Hold PT for patient as per RN Neto - bed rest. Addendum: 12/10/18 at 1053 by MARILY COOMBS PTT Amended: Links added.
--- NOTE | 2018-12-10 11:00 | NUR ---
Dr. Faust at the bedside, seen and examined patient at this time, made aware about hematuria, patient still need treatment for DVT, will continue to monitor and care. Plan of care discussed with patient, patient verbalized understanding, plan to transfer to Tele this afternoon if patient still stable after D/C iv Cordarone.
[2018-12-10] MEDS ORDERED: AMIODARONE HCL 200 MG TAB PO ONE (11:15)
[2018-12-10 12:00] VITALS: BP 129/69
[2018-12-10] MEDS: Glucerna Carbsteady SHAKE Vanilla 8oz PO SCH ×2 (12:12→16:58)
--- NOTE | 2018-12-10 12:20 | NUR ---
Cordarone (200 mg ) oral given at this time, D/C Cordarone iv drip. Will continue to monitor and care.
--- NOTE | 2018-12-10 12:45 | NUR ---
Lunch tray provided, patient sitting up on the bed.
--- NOTE | 2018-12-10 13:30 | NUR ---
COPYING MACHINE REPAIRER for Dr. Tavera seen and examined patient at this time, plan of care discussed with patient, will continue to monitor and care, made aware about transfer to Tele.
--- NOTE | 2018-12-10 13:55 | NUR ---
Patient can start ambulation with PT tomorrow if patient is stable (per Dr. Faust), will continue to monitor and care.
--- NOTE | 2018-12-10 14:15 | NUR ---
NUTRITION CONSULT/ASSESSMENT NOTES Please refer to link notes of nutrition screen form filed under the intervention section of the plan of care for further details. Est. Needs: 2050 kcal to 2450 kcal (25-30 kcal/kgBW), 65 gms to 81 gms pro (0.8-1.0 gms/kgBW). Will continue to monitor pertinent labs and reassess nutrient need prn Thank you for this consult. Addendum: 12/10/18 at [address] Amended: Links added.
--- NOTE | 2018-12-10 14:25 | NUR ---
Patient still feeding himself for Lunch, no aspiration noted, vital sign stable: HR 72 with SR, BP 119/67 mmHg, urine flow well with hematuria, no bladder distension noted.
--- NOTE | 2018-12-10 15:34 | NUR ---
Patient finished his Lunch (100%) at this time, no aspiration noted.
[2018-12-10 16:00] VITALS: BP 137/70
--- NOTE | 2018-12-10 16:33 | NUR ---
Called for giving a report to Palomo SUTHERLAND.
--- NOTE | 2018-12-10 16:43 | NUR ---
[facility] pt transferred to floor [facility] transferred to Room 246 A via a hospital bed on hose inspector (tele #[phone]) and portable 02. All patient medications and personal belongings transferred with patient to receiving floor. Patient care transferred to Palomo SUTHERLAND.
--- NOTE | 2018-12-10 16:59 | NUR ---
PATIENT TRANSFERED FROM [facility] FEELING WELL VITALS SIGNS IN NORMAL LIMITS //DiCaprio RN
--- NOTE | 2018-12-10 20:00 | NUR ---
Opening Shift Note Assumed care of patient, awake and alert. No S/S of distress/SOB or pain. Instructed on POC and to call or assist PRN, will continue to monitor for changes Q1hr and PRN.
[2018-12-10] MEDS: AMIODARONE HCL 200 MG TAB PO SCH (21:33)
[2018-12-10 21:49] VITALS: BP 158/75
[2018-12-11 05:32] VITALS: BP 138/70
[2018-12-11] MEDS: InsuLIN REG 1unit/0.01ml Soln (100units/ml) SC SCH ×4 (05:50→23:28)
[2018-12-11] MEDS: ACCU-CHEK COMFORT CURVE STRIP VI SCH ×4 (05:50→23:28)
[2018-12-11 06:38] LABS: Basophils # (auto) 0 uL; Basophils % (auto) 0.5 % (0.0-2.0); Eosinophils # (auto) 0.3 uL; Eosinophils % (auto) 3.3 % (0.0-7.0); Hemoglobin 11.6 g/dL (13.5-17.5); Lymphocytes % (auto) 12.2 % (10.0-50.0); Mean Corpuscular Hemoglobin 31.1 pg (28.0-32.0); Mean Corpuscular Hgb Conc. 34.1 g/dL (32.0-36.0); Mean Corpuscular Volume 91.2 fL (80.0-100.0); Monocytes # (auto) 0.9 uL; Monocytes % (auto) 10.6 % (0.0-12.0); Neutrophils # (auto) 6.2 uL; Neutrophils % (auto) 73.4 % (37.0-80.0); Platelet Count (auto) 154 10^3/uL (140-450); Red Blood Cells 3.73 10^6/uL (4.5-5.90); White Blood Cell 8.4 10^3/uL (4.4-10.8)
[2018-12-11] MEDS: VANCOMYCIN 1,250 MG in D5W 5% 250 ML IV SCH (07:03)
--- NOTE | 2018-12-11 07:42 | NUR ---
Report given to Bridget Culver to assume the care, patient is resting no distress, NPO.
[2018-12-11 07:45] LABS: BUN/Creatinine Ratio 10.8; Calcium 8.4 mg/dL (8.5-10.1); Potassium 4.1 mmol/L (3.5-5.1)
[2018-12-11] MEDS: Glucerna Carbsteady SHAKE Vanilla 8oz PO SCH ×4 (08:00→17:01)
[2018-12-11 09:00] VITALS: BP 167/93
[2018-12-11] MEDS ORDERED: ADENOSINE 75 MG in GIVE UN-DILUTED 0 ML IV ONE (09:00)
[2018-12-11] MEDS: SOTALOL HCL 80 MG TAB PO SCH ×2 (10:00→21:50)
[2018-12-11] MEDS: AMIODARONE HCL 200 MG TAB PO SCH ×2 (12:20→21:50)
[2018-12-11] MEDS: cefTRIAXone 1GM/50ML D5W 50 ML IV SCH (12:22)
[2018-12-11] MEDS: hydrALAZINE HCL 25 MG TAB PO SCH ×2 (12:22→21:50)
[2018-12-11] MEDS: ENOXAPARIN SOD 80 MG/0.8ML SYRINGE SC SCH ×3 (12:23→21:59)
[2018-12-11] MEDS: ESOMEPRAZOLE 40 MG/5ml VIAL INJ IV SCH (12:27)
[2018-12-11 13:00] VITALS: BP 160/78
[2018-12-11 17:34] VITALS: BP 158/92
--- NOTE | 2018-12-11 19:00 | NUR ---
OPENING NOTE RECEIVED REPORT FROM JW RN. ASSUMING ROLE OF CARE OF PATIENT AT THIS TIME. PATIENT SHOWING NO SIGN OF DISTRESS, SHORTNESS OF BREATH, AND PATIENT DENIES ANY PAIN BESIDES A SORE THROAT. PATIENT APPEARS ORIENTED AT THIS TIME AND ABLE TO RESPOND APPROPRIATELY AND CLEARLY. PER JW RN, PREVIOUS FERNÁNDEZ WAS LEAKING AND SO WAS REMOVED AND A NEW FERNÁNDEZ WAS PLACED. FERNÁNDEZ HAS RED TINGED URINE IN BAG AND JW RN STATES IT IS FROM THE TRAUMA OF INSERTION. WILL CONTINUE TO MONITOR FERNÁNDEZ OUTPUT AND WILL CONTACT MD IF NECESSARY. PATIENT EDUCATED ON PLAN OF CARE FOR THE NIGHT AND PATIENT VERBALIZED UNDERSTANDING. BED LOWERED, CALL LIGHT WITHIN REACH, AND PATIENT WILL BE ROUNDED ON EVERY HOUR AND NEEDED.
[2018-12-11 22:00] VITALS: BP 122/68
--- NOTE | 2018-12-11 22:05 | NUR ---
SPOKE WITH HUMAN RESOURCE ADVISOR AND HEMATURIA HAS BEEN PRESENT SINCE TRANSFER WHILE CHANGING PATIENT, HUMAN RESOURCE ADVISOR STATED THAT THE HEMATURIA WAS PRESENT LAST NIGHT. REVIEWED NOTES AND SAW PER MD'S NOTES ON 12/10/18 MD WAS AWARE OF HEMATURIA.
[2018-12-12] MEDS: InsuLIN REG 1unit/0.01ml Soln (100units/ml) SC SCH ×3 (05:40→18:01)
[2018-12-12] MEDS: ACCU-CHEK COMFORT CURVE STRIP VI SCH ×3 (05:40→16:38)
[2018-12-12] MEDS: hydrALAZINE HCL 25 MG TAB PO SCH ×3 (05:45→21:56)
[2018-12-12 06:03] VITALS: BP 145/69
[2018-12-12 06:48] LABS: Basophils # (auto) 0 uL; Basophils % (auto) 0.5 % (0.0-2.0); Eosinophils # (auto) 0.3 uL; Eosinophils % (auto) 3.6 % (0.0-7.0); Hemoglobin 11.4 g/dL (13.5-17.5); Lymphocytes # (auto) 1.2 uL; Lymphocytes % (auto) 14.1 % (10.0-50.0); Mean Corpuscular Hemoglobin 30.7 pg (28.0-32.0); Mean Corpuscular Hgb Conc. 33.4 g/dL (32.0-36.0); Mean Corpuscular Volume 91.7 fL (80.0-100.0); Monocytes % (auto) 11.5 % (0.0-12.0); Neutrophils % (auto) 70.3 % (37.0-80.0); Platelet Count (auto) 171 10^3/uL (140-450); Red Cell Distribution Width 14.2 % (11.8-14.3); White Blood Cell 8.6 10^3/uL (4.4-10.8)
[2018-12-12 07:12] LABS: BUN/Creatinine Ratio 13.9; Calcium 8.4 mg/dL (8.5-10.1); Potassium 3.9 mmol/L (3.5-5.1)
[2018-12-12] MEDS: Glucerna Carbsteady SHAKE Vanilla 8oz PO SCH ×3 (08:00→17:40)
[2018-12-12] MEDS: ESOMEPRAZOLE 40 MG/5ml VIAL INJ IV SCH (08:00)
[2018-12-12 08:59] VITALS: BP 123/59
[2018-12-12] MEDS: SOTALOL HCL 80 MG TAB PO SCH ×2 (09:40→21:55)
[2018-12-12] MEDS: ENOXAPARIN SOD 80 MG/0.8ML SYRINGE SC SCH ×2 (09:40→21:57)
[2018-12-12] MEDS: AMIODARONE HCL 200 MG TAB PO SCH ×2 (09:41→21:55)
[2018-12-12 12:23] VITALS: BP 128/59
[2018-12-12 16:48] VITALS: BP 128/67
--- NOTE | 2018-12-12 19:10 | NUR ---
Opening notes Assumed care, awake and oriented with no signs of distress and no complaints of pain, respirations even and unlabored, on O2 @ 2L/nasal cannula, sat 96%, tyson catheter draining to a dark michelle urine. Bed in lowest position with side rails up, bed alarm on and call light within reach. Encouraged to call if he needs something. Will continue care.
--- NOTE | 2018-12-12 20:40 | NUR ---
Had moderate amount of loose, brown stools. Cleansed and kept dry and comfortable, optifoam placed on sacrum. Repositioned for comfort.
[2018-12-12 22:00] VITALS: BP 105/54
--- NOTE | 2018-12-13 | NUR ---
Accuchgege 142, held insulin, pt on NPO.
--- NOTE | 2018-12-13 | NUR ---
Instructed on NPO post midnight
[2018-12-13] MEDS: ACCU-CHEK COMFORT CURVE STRIP VI SCH ×4 (00:17→17:38)
--- NOTE | 2018-12-13 04:30 | NUR ---
Large amount of soft, brown stools noted, cleansed and kept dry and comfortable. Complete bed bath with CHG wipes done. Repositioned for comfort.
--- NOTE | 2018-12-13 04:40 | NUR ---
C. diff stool specimen sent to lab, form properly filled out.
[2018-12-13 05:33] VITALS: BP 133/64
[2018-12-13] MEDS: hydrALAZINE HCL 25 MG TAB PO SCH ×3 (06:00→22:36)
[2018-12-13] MEDS: InsuLIN REG 1unit/0.01ml Soln (100units/ml) SC SCH ×4 (06:00→17:55)
[2018-12-13 06:14] LABS: BUN/Creatinine Ratio 16.3; Calcium 8.4 mg/dL (8.5-10.1); Potassium 4.3 mmol/L (3.5-5.1)
[2018-12-13 06:18] LABS: Basophils # (auto) 0 uL; Basophils % (auto) 0.7 % (0.0-2.0); Eosinophils # (auto) 0.4 uL; Eosinophils % (auto) 5.4 % (0.0-7.0); Hematocrit 31.2 % (41.0-53.0); Hemoglobin 10.6 g/dL (13.5-17.5); INR 0.9 (0.9-1.15); Lymphocytes # (auto) 1.3 uL; Lymphocytes % (auto) 17.5 % (10.0-50.0); Mean Corpuscular Hemoglobin 31.1 pg (28.0-32.0); Mean Corpuscular Hgb Conc. 34.1 g/dL (32.0-36.0); Mean Corpuscular Volume 91.2 fL (80.0-100.0); Monocytes # (auto) 0.9 uL; Monocytes % (auto) 12.4 % (0.0-12.0); Neutrophils # (auto) 4.6 uL; Partial Thromboplastin Time 36.8 sec (23.64-32.05); Platelet Count (auto) 180 10^3/uL (140-450); Red Blood Cells 3.42 10^6/uL (4.5-5.90); Red Cell Distribution Width 14.2 % (11.8-14.3); White Blood Cell 7.2 10^3/uL (4.4-10.8)
--- NOTE | 2018-12-13 07:15 | NUR ---
Closing notes Resting on bed with no signs of distress.Report given to Carmen SUTHERLAND.
[2018-12-13] MEDS: Glucerna Carbsteady SHAKE Vanilla 8oz PO SCH ×3 (08:00→17:55)
[2018-12-13] MEDS: ESOMEPRAZOLE 40 MG/5ml VIAL INJ IV SCH (08:00)
[2018-12-13 09:00] VITALS: BP 163/79
[2018-12-13] MEDS: ENOXAPARIN SOD 80 MG/0.8ML SYRINGE SC SCH ×2 (09:26→22:38)
[2018-12-13] MEDS: SOTALOL HCL 80 MG TAB PO SCH ×2 (09:26→22:37)
[2018-12-13] MEDS: AMIODARONE HCL 200 MG TAB PO SCH ×2 (09:26→22:37)
[2018-12-13] MEDS: ACETAMINOPHEN 650 MG RECT SUPP PR PRN (09:54)
[2018-12-13] MEDS ORDERED: LIDOCAINE 2%HCL (LOCAL ANESTH.) INJ 20ML MDV ONE (10:12)
[2018-12-13] MEDS ORDERED: IOHEXOL 350 MG/ML 100ML IJ ONE (10:12)
[2018-12-13] MEDS ORDERED: fentaNYL CITRATE 100 MCG/2 ML VL ONE (12:09)
[2018-12-13] MEDS ORDERED: ANGIOMAX 250 MG VIAL IV ONE (12:09)
[2018-12-13] MEDS ORDERED: SODIUM CHL 0.9% 0 ML ONE (12:10)
[2018-12-13] MEDS ORDERED: MIDAZOLAM HCL 1MG/1ML-2 ML VIAL ONE (12:10)
[2018-12-13] MEDS ORDERED: IODIXANOL 320MG/ML 100ML BTL IV ONE (12:10)
--- NOTE | 2018-12-13 14:13 | NUR ---
Nutrition Follow-up Notes Wt.: 89.0 kg as of yesterday. Pt's NPO, off the floor for a procedure during rounds this morning. Pt's no signs of distress noted earlier, noted likely to start today on Pureed Consistent Standard Carb: 60 gms/meal, Cardiac: 2 gms Na, Low Chol, Low Fat diet with Glucerna Shakes 1 carton TID and active order at this time. Est. Needs: 2050 kcal to 2450 kcal (25-30 kcal/kgBW), 65 gms to 81 gms pro (0.8-1.0 gms/kgBW). Will continue to monitor pertinent labs and reassess nutrient need prn Labs: Gluc 135H, BUN 24 H, Cr 1.60 H, Ca 8.4 L; Tpro 5.8 L, Alb 2.7 L; HbA1c 6.4 H Skin: Tito scale 14,mod risk, pt's left price skin tears per RN doc per aviation safety inspector. GI: Pt had 2x BM this morning aviation safety inspector. PES: Altered nutrition related lab values r/t current/chronic medical condition aeb hyperglycemia, hyperchloremia, elev. Cr, HbA1c, hypocalcemia and mod hypoalbuminemia Will continue to monitor PO intake, skin status, pertinent labs and weight trend. F/u in 3 to 5 days. Rec.: 1.) If Albumin level continues trending down with improved renal labs, consider Prostat 1 pkt BID. 2.) Consider daily MVI with minerals and Asc acid 500 mgs BID. 3.) Continue close supervision and feeding assistance prn during meals 4.) Refer to CDE/RD for further nutrition education and weight monitoring upon discharged. 5.) Continue current plan of car
--- NOTE | 2018-12-13 15:24 | NUR ---
PT OFF FLOOR FOR LEFT HEART CATH, RETURNING TO FLOOR APPROX. 1400. A/O. VITAL SIGNS ARE STABLE. DENIES PAIN. DRESSING TO RIGHT GROIN CLEAN, DRY, INTACT. NO BRUISING OR BLEEDING NOTED, SOFT TO TOUCH.
--- NOTE | 2018-12-13 16:36 | NUR ---
PT PULLED FERNÁNDEZ OUT WITH BALLOON INTACT. MODERATE AMT OF BLEEDING NOTED. DR. SHRESTHA NOTFIFIED, REC'D ORDERS FOR UROLOGY CONSULT. ORDER PLACED.
[2018-12-13 17:00] VITALS: BP 141/75
--- NOTE | 2018-12-13 19:40 | NUR ---
PM NOTE PT VOMITED ABOUT 300 ML OUT. GAVE ZOFRAN FOR NAUSEA. PT RESTING IN BED. BED IN LOW POSITION. CALL LIGHT WITH IN REACH. WILL CONTINUE TO MONITOR.
--- NOTE | 2018-12-13 22:25 | NUR ---
COMPLETE LINEN CHANGE. PT RIGHT GROIN DRESSING CLEAN DRY INTACT. WILL CONTINUE TO MONITOR.
[2018-12-13 22:53] VITALS: BP 156/69
[2018-12-14] MEDS: ACCU-CHEK COMFORT CURVE STRIP VI SCH ×4 (00:25→18:30)
[2018-12-14] MEDS: InsuLIN REG 1unit/0.01ml Soln (100units/ml) SC SCH ×4 (00:26→18:00)
--- NOTE | 2018-12-14 01:35 | NUR ---
GAVE REPORT TO ENMA SUTHERLAND
--- NOTE | 2018-12-14 01:35 | NUR ---
Assumed care of patient. Patient sleeping in bed comfortably no s/s of SOB or distress noted. Patient denies pain.
[2018-12-14 05:40] VITALS: BP 148/70
[2018-12-14] MEDS: hydrALAZINE HCL 25 MG TAB PO SCH ×3 (06:30→22:10)
[2018-12-14 07:07] LABS: GFR African American 59 mL/min; GFR Non-African American 49 mL/min
--- NOTE | 2018-12-14 07:30 | NUR ---
Opening Shift Note Assumed care of patient, awake and alert. No S/S of distress/SOB or pain. Instructed on POC and to call for assist PRN, will continue to monitor for changes Q1hr and PRN. AIR MATTRESS IN PLACE.
--- NOTE | 2018-12-14 07:57 | NUR ---
Endorsed care to day shift RN. Patient laying in bed sleeping comfortably no s/s of distress or SOB.
[2018-12-14] MEDS: Glucerna Carbsteady SHAKE Vanilla 8oz PO SCH ×3 (08:00→18:30)
[2018-12-14] MEDS: ESOMEPRAZOLE 40 MG/5ml VIAL INJ IV SCH (08:00)
--- NOTE | 2018-12-14 08:30 | NUR ---
PT NOTES PT ALERT TO SELF. ABLE TO COMMUNICATE CLEARLY AND IS COOPERATIVE.
[2018-12-14 09:00] VITALS: BP 134/69
[2018-12-14] MEDS: ENOXAPARIN SOD 80 MG/0.8ML SYRINGE SC SCH (10:28)
[2018-12-14] MEDS: AMIODARONE HCL 200 MG TAB PO SCH ×2 (10:28→22:11)
[2018-12-14] MEDS: SOTALOL HCL 80 MG TAB PO SCH ×2 (10:28→22:11)
--- NOTE | 2018-12-14 10:30 | NUR ---
Rounds Patient awake and alert. No S/S of distress/SOB or pain. TOLERATED PO MEDS WITH NO PROBLEM NOTED. Will continue to monitor changes q1hr and PRN.
[2018-12-14 13:00] VITALS: BP 118/50
--- NOTE | 2018-12-14 15:10 | NUR ---
[facility] RECEIVED A CALL BACK FROM ANDRES, PHYSICS TECHNICAL OFFICER. ANDRES MADE AWARE OF PT'S TRANSFER ORDER TO [facility]. PER ANDRES SHE WILL FAX THE INFORMATION TO [facility].
--- NOTE | 2018-12-14 15:27 | NUR ---
FAXED [facility] PROGRESS NOTES AND TRANSFER ORDER TO [facility]. PRIMARY RN TO FAX TRANSFER SUMMARY WHEN COMPLETED BY MD. [facility] FAX IS [phone]
--- NOTE | 2018-12-14 15:35 | NUR ---
I FAXED TRANSFER SUMMARY
--- NOTE | 2018-12-14 16:00 | NUR ---
Rounds Patient awake and alert. No S/S of distress/SOB or pain. Will continue to monitor changes q1hr and PRN.
[2018-12-14] MEDS: metroNIDAZOLE 500 MG TAB PO SCH ×2 (16:25→22:11)
[2018-12-14 17:00] VITALS: BP 120/51
--- NOTE | 2018-12-14 18:00 | NUR ---
Rounds Patient awake and alert. No S/S of distress/SOB or pain. Will continue to monitor changes q1hr and PRN.
--- NOTE | 2018-12-14 19:00 | NUR ---
TRANSFER NOTES WAITING FOR [facility] TO CALL RE: BED AVAILABILITY
--- NOTE | 2018-12-14 19:08 | NUR ---
CLOSING NOTES PT SITTING UP, EATING DINNER. DENIES PAIN OR SOB. NO DISTRESS NOTED.
[2018-12-14] MEDS: APIXABAN 5 MG TAB PO SCH (22:11)
[2018-12-14 22:32] VITALS: BP 138/63
[2018-12-15] MEDS: ACCU-CHEK COMFORT CURVE STRIP VI SCH ×3 (01:27→12:19)
[2018-12-15] MEDS: InsuLIN REG 1unit/0.01ml Soln (100units/ml) SC SCH ×3 (01:33→13:45)
[2018-12-15 06:07] VITALS: BP 133/54
[2018-12-15] MEDS: metroNIDAZOLE 500 MG TAB PO SCH ×2 (06:26→13:45)
[2018-12-15] MEDS: hydrALAZINE HCL 25 MG TAB PO SCH ×2 (06:26→13:45)
[2018-12-15 07:26] VITALS: BP 133/54
--- NOTE | 2018-12-15 07:30 | NUR ---
REPORT RECEIVED FROM SHANIQUA PARK RN.
--- NOTE | 2018-12-15 07:30 | NUR ---
Opening Shift Note Assumed care of patient, awake and alert. No S/S of distress/SOB or pain. Instructed on POC and to call for assist PRN, will continue to monitor for changes Q1hr and PRN.
--- NOTE | 2018-12-15 08:10 | NUR ---
TRANSFER NOTE CALLED [facility] AT [phone]. SPOKE TO RAUL, [employer] SALES ASSOCIATE. INFORMED RAUL THAT PT'S MEDICAL RECORDS WERE FAXED THIS MORNING. PER RAUL, THEY RECEIVED A FAX AT 0400 AM RE: TRANSFER AND WILL WAIT FOR THE MEDICAL RECORDS THAT WERE FAXED JUST NOW. SOMEONE WILL CALL BACK ONCE THEY HAVE ALL THE INFORMATION FOR TRANSFER.
[2018-12-15 09:00] VITALS: BP 107/61
[2018-12-15] MEDS: SOTALOL HCL 80 MG TAB PO SCH (10:26)
[2018-12-15] MEDS: APIXABAN 5 MG TAB PO SCH (10:26)
[2018-12-15] MEDS: AMIODARONE HCL 200 MG TAB PO SCH (10:26)
[2018-12-15] MEDS: Glucerna Carbsteady SHAKE Vanilla 8oz PO SCH ×2 (10:27→12:19)
--- NOTE | 2018-12-15 11:50 | NUR ---
TRANSFER NOTE CALL RECEIVED FROM [facility]. PT TO TRANSFER TO [facility], RM [address] Ryan LIM ADMITTING DOCTOR.
--- NOTE | 2018-12-15 12:12 | NUR ---
WOUND CARE NOTE: Patient has discharge/transfer to [facility] order. Wound care in to assist bedside nurse to change wound dressing and take DC photo. Patient continue resting on air mattress in Rm. 246B. Patient is awake,alert and oriented. Mild pain noted upon turning/movement. ENA Estrella at bedside to medicate patient for pain. Patient is able to assist in turning and repositioning and his current Tito score is 14. Skin wound assessment done with the assistance of patient's nurse, ENA Estrella. Ecchymosis to patient's Rt shoulder, arm and sacrum are fading/resolving. Lower buttocks has blanchable redness, skin remain intact. Rt elbow skin tear is resolving with thin brown scab and red open area. Cleansed all wounds, photograph taken for reference and changed the dressing as ordered. Repositioned patient for comfort facing his Lt side, redistributed pressure points with pillows. Patient tolerated well. ENA Estrella at bedside. RECOMMENDATION: Continuation of all wound care orders prescribed by MD, continue with skin/wound plan of care, continue monitoring by wound care while patient is hospitalized.
[2018-12-15 12:43] VITALS: BP 125/56
[2018-12-15] MEDS ORDERED: ACETAMINOPHEN 325 MG TAB PO PRN (12:45)
--- NOTE | 2018-12-15 13:00 | NUR ---
REPORT GIVEN TO ENA TORRES.
[2018-12-15 13:31] VITALS: BP 123/56
--- NOTE | 2018-12-15 14:00 | NUR ---
Discharge instructions given as ordered. All questions and concerns addressed. Patient verbalized understanding. Medication reconciliation form completed and copy given to patient.. Telemetry unit returned to ICU. AWAITING FOR TRANSPORTATION.
--- NOTE | 2018-12-15 14:30 | NUR ---
Patient PICKED UP BY [facility] via [facility] with all personal belongings. No distress noted at time of departure.
[2018-12-21] MEDS ORDERED: APIXABAN 5 MG TAB PO SCH (22:00)
== END 2018-12-15 14:30 | disposition short-term general hospital (02) | DRG 70 ==
LOC: EDBD 00:16 → ER 00:17 → DOU IN ICU 04:34 → TELE-EAST 12-10 16:50
PROVIDERS: ADMIT Nurse Practitioner Family; ATTEND Internal Medicine Pulmonary Disease
PROC: 4A023N7 Measurement of Cardiac Sampling and Pressure, Left Heart, Percutaneous Approach (ICD-10-PCS; principal; 2018-12-13)
PROC: B2111ZZ Fluoroscopy of Multiple Coronary Arteries using Low Osmolar Contrast (ICD-10-PCS; 2018-12-13)
PROC: B2151ZZ Fluoroscopy of Left Heart using Low Osmolar Contrast (ICD-10-PCS; 2018-12-13)
DX: G93.41 Metabolic encephalopathy (principal); I26.99 Other pulmonary embolism without acute cor pulmonale; N17.0 Acute kidney failure with tubular necrosis; D68.69 Other thrombophilia; I50.42 Chronic combined systolic (congestive) and diastolic (congestive) heart failure; I13.0 Hypertensive heart and chronic kidney disease with heart failure and stage 1 through stage 4 chronic kidney disease, or unspecified chronic kidney disease; I48.92 Unspecified atrial flutter; E44.0 Moderate protein-calorie malnutrition; J98.11 Atelectasis; M62.82 Rhabdomyolysis; I42.9 Cardiomyopathy, unspecified; N17.9 Acute kidney failure, unspecified; I82.413 Acute embolism and thrombosis of femoral vein, bilateral; I16.0 Hypertensive urgency; E11.21 Type 2 diabetes mellitus with diabetic nephropathy; E11.22 Type 2 diabetes mellitus with diabetic chronic kidney disease; E11.42 Type 2 diabetes mellitus with diabetic polyneuropathy; R55 Syncope and collapse; I48.91 Unspecified atrial fibrillation; R31.9 Hematuria, unspecified; F03.90 Unspecified dementia, unspecified severity, without behavioral disturbance, psychotic disturbance, mood disturbance, and anxiety; S40.022A Contusion of left upper arm, initial encounter; S40.021A Contusion of right upper arm, initial encounter; S80.12XA Contusion of left lower leg, initial encounter; S80.11XA Contusion of right lower leg, initial encounter; W18.39XA Other fall on same level, initial encounter; E78.5 Hyperlipidemia, unspecified; N18.9 Chronic kidney disease, unspecified; Z68.28 Body mass index [BMI] 28.0-28.9, adult; F17.200 Nicotine dependence, unspecified, uncomplicated; K76.0 Fatty (change of) liver, not elsewhere classified; Z59.0 Homelessness; Z79.01 Long term (current) use of anticoagulants; Z82.49 Family history of ischemic heart disease and other diseases of the circulatory system; Z83.3 Family history of diabetes mellitus; Z91.14 Patient's other noncompliance with medication regimen; Z86.718 Personal history of other venous thrombosis and embolism; Y93.89 Activity, other specified; Y92.89 Other specified places as the place of occurrence of the external cause; Y99.8 Other external cause status
CPT/HCPCS: 36415; 51702; 70450; 71045; 71250; 74176; 78452; 80048; 80053; 80202; 80307; 80320; 80329; 81001; 82550; 82565; 82962; 83036; 83605; 84443; 84484; 85025; 85379; 85610; 85730; 86850; 86900; 86901; 87040; 87081; 87086; 87493; 92610; 93005; 93017; 93306; 93458; 93886; 93970; 94761; 96365; 96367; 96375; 97110; 97163; 97530; 99152; 99291; G0378; J0153; J0696; J1815; J1885; J1956; J2250; J2405; J7060; Q9967